=== PATIENT | male | born 1970 | race Two or more races ===

== ENCOUNTER → 2025-01-22 | Outpatient (CLI) | payer MEDICARE, MEDICAID, SELFPAY ==
[2025-01-22 16:27] LABS: Basophils # (Auto) 0.1 Thou/mm3 (0.0-0.2); Basophils % (Auto) 1 % (0-2.5); Eosinophils # (Auto) 0.6 Thou/mm3 (0.0-0.5); Eosinophils % (Auto) 9 % (0-10); Hematocrit 43.8 % (41.0-53.0); Hemoglobin 15.6 g/dL (13.5-16.0); Immature Granulocytes % (Auto) 0 % (0-0); Immature Granulocytes Auto 0.01 Thou/mm3 (0.00-0.00); Lymphocytes # (Auto) 2.3 Thou/mm3 (1.0-4.8); Lymphocytes % (Auto) 33 % (10-50); Mean Corpuscular HGB Conc 35.6 g/dl (31.0-37.0); Mean Corpuscular Hemoglobin 31.8 pg (25.0-35.0); Mean Corpuscular Volume 89 fL (80-100); Monocytes # (Auto) 0.6 Thou/mm3 (0.0-0.8); Monocytes % (Auto) 8 % (0-12); Neutrophils # (Auto) 3.3 Thou/mm3 (1.8-7.7); Neutrophils % (Auto) 48 % (37-80); Nucleated Red Blood Cell % 0 /100 WBC (0); Platelet Count 194 Thou/mm3 (140-440); RDW Standard Deviation 39.7 fL (35.1-43.9); Red Blood Count 4.91 Miln/mm3 (4.50-5.90); White Blood Count 6.8 Thou/mm3 (3.8-10.6)
[2025-01-22 16:47] LABS: Alanine Aminotransferase 24 U/L (10-49); Albumin, Serum 4.1 gm/dL (3.5-5.0); Albumin/Globulin Ratio 1.4 (1.2-2.2); Alkaline Phosphatase 70 U/L (46-116); Anion Gap 7 (7-16); Aspartate Amino Transferase < 8 U/L (0-34); BUN/Creatinine Ratio 16 Ratio (12-20); Bilirubin,Total 0.4 mg/dL (0.3-1.2); Blood Urea Nitrogen 11 mg/dL (9-23); Calcium 9.9 mg/dL (8.3-10.6); Calcium (Corrected) 9.9 mg/dL (8.5-10.1); Chloride 98 mMol/L (98-107); Creatinine (Component) 0.7 mg/dL (0.6-1.3); Globulin 2.9 gm/dL (2.3-3.5); Glucose 97 mg/dL (74-106); Osmolality,Calculated 269 (275-295); Potassium 4.3 mMol/L (3.4-5.1); Sodium 135 mMol/L (136-145); eGFR > 60 See Note
== END | disposition home or self-care (01) ==
PROVIDERS: PCP Family Medicine; Referring Provider Family Medicine; Visit Provider Family Medicine
DX: K21.9 Gastro-esophageal reflux disease without esophagitis (principal); R32 Unspecified urinary incontinence; M81.0 Age-related osteoporosis without current pathological fracture; K59.09 Other constipation; Z71.3 Dietary counseling and surveillance; F73 Profound intellectual disabilities
CPT/HCPCS: 36415; 80053; 85025

== ENCOUNTER → 2025-03-02 | Outpatient (CLI) | payer MEDICARE, MEDICAID, SELFPAY ==
[2025-03-02 10:04] LABS: Collection Type, Urine Clean Catch; Squamous Epithelial Cell,Urine 0 /hpf (0-5)
[2025-03-02 11:56] LABS: Bacteria,Urine Rare; Bilirubin,Urine Negative (Negative); Blood,Urine Negative (Negative); Color,Urine Lt-Yellow (Lt Yel-Yel); Glucose, Urine Negative (Negative); Ketones,Urine Negative (Negative); Leukocyte Esterase,Urine Positive (Negative); Nitrite,Urine Positive (Negative); Protein,Urine Negative (Neg - Trace); RBC,Urine 2 /hpf (0-3); Specific Gravity,Urine 1.006 (1.001-1.035); Urobilinogen,Urine Negative mg/dL (0.0-1.0); WBC,Urine 29 /hpf (0-5)
[2025-03-02 12:25] LABS: Clarity,Urine Hazy (Clear/Hazy)
== END | disposition home or self-care (01) ==
LOC: SLDO 09:57
PROVIDERS: Referring Provider Surgery; Visit Provider Surgery
DX: F84.9 Pervasive developmental disorder, unspecified (principal); N39.0 Urinary tract infection, site not specified
CPT/HCPCS: 81001; 87086

== ENCOUNTER → 2025-04-07 | Outpatient (CLI) | payer MEDICARE, MEDICAID, SELFPAY ==
[2025-04-07 10:19] LABS: Collection Type, Urine Clean Catch; Squamous Epithelial Cell,Urine 0 /hpf (0-5)
[2025-04-07 11:09] LABS: Bacteria,Urine 1+; Bilirubin,Urine Negative (Negative); Blood,Urine 1+ (Negative); Clarity,Urine Clear (Clear/Hazy); Color,Urine Lt-Yellow (Lt Yel-Yel); Glucose, Urine Negative (Negative); Ketones,Urine Negative (Negative); Leukocyte Esterase,Urine Positive (Negative); Nitrite,Urine Negative (Negative); Protein,Urine Negative (Neg - Trace); RBC,Urine 46 /hpf (0-3); Specific Gravity,Urine 1.009 (1.001-1.035); Urobilinogen,Urine Negative mg/dL (0.0-1.0); WBC,Urine 8 /hpf (0-5)
== END | disposition home or self-care (01) ==
LOC: SLDO 10:11
PROVIDERS: Referring Provider Surgery; Visit Provider Surgery
DX: N41.9 Inflammatory disease of prostate, unspecified (principal)
CPT/HCPCS: 81001; 87077; 87086; 87186

== ENCOUNTER 2025-04-08 01:43 | Emergency (ER) | payer MEDICARE, MEDICAID, SELFPAY ==
[2025-04-08 01:59] VITALS: BP 139/85; PULSE 109; RESP 18; TEMP 37.7; O2SAT 95
[2025-04-08 02:20] VITALS: BP 125/83; PULSE 102; RESP 20; TEMP 37.7; O2SAT 94
--- NOTE | 2025-04-08 03:12 | XR_ITS ---
Examination: Abdomen AP single view Technique: AP portable supine abdomen, single view Exam date and time: April 08, 2025 0317 hours INDICATIONS: Unknown position gastrostomy tube FINDINGS: Opacification of the stomach duodenal bulb duodenal sweep and small bowel IMPRESSION: Gastrostomy tube in the body of the stomach satisfactory position Abundant stool throughout the colon
--- NOTE | 2025-04-08 03:13 | PD.EDADULT ---
ED General RME/HPI General Chief complaint: General Adult/Misc Complain Stated complaint: PULLED OUT G TUBE Time Seen by Provider: 04/08/25 02:31 Arrival date/time: 04/08/25 01:43 RME / HPI RME / HPI narrative: Dr. Stallworth?s Main ED Evaluation: 54 y/o non-verbal male with Hx of G-tube and Cerebral Palsy presents to ED from [facility] c/o G-tube dislodgment. No abdominal pain reported. Staff found the patient and noticed his G-tube was pulled out. No other concerns or complaints expressed at this time. Related Data Home Medications ?Medication ?Instructions ?Recorded ?Confirmed baclofen 10 mg tablet 10 mg feeding tube TID 06/16/23 06/16/23 glycopyrrolate 2 mg tablet 2 mg feeding tube TID 06/16/23 06/16/23 omeprazole 20 mg capsule,delayed 20 mg feeding tube DAILY 06/16/23 06/16/23 release Allergies Allergy/AdvReac Type Severity Reaction Status Date / Time acetylcysteine (From Allergy Verified 06/16/23 18:34 Mucomyst) vancomycin Allergy Verified 06/16/23 18:34 Review of Systems Review of Systems ROS Unobtainable: unobtainable due to medical condition (Cerebral Palsy/Non-verbal) Past Medical History Past Medical History NEUROLOGIC: Positive Seizures and Cerebral Palsy GASTROINTESTINAL: Positive Gastroesophageal Reflux Disease MUSCULOSKELETAL: Positive Osteoporosis OTHER HISTORY: Positive Hospitalization and Developmental Delay Surgical History SURGICAL: Positive Gastrostomy ED Exam Narrative Physical exam: GENERAL APPEARANCE: awake, confused, nonverbal, localizes to pain, unable to contribute to history, well-developed, well-nourished, no acute distress VITALS: All vitals were reviewed and the pulse ox is 95% on room air, which is normal according to my interpretation. HEENT: Normocephalic, atraumatic; pupils equal, round, reactive to light; EOMI; mucous membranes pink, moist; oropharynx clear NECK: Supple LUNGS: CTABL; no wheezes, no rales, no rhonchi HEART: Regular rate, regular rhythm; normal S1, S2; no murmurs ABDOMEN: non distended; normal BS; soft, no tenderness, no guarding, no rebound; no masses, no organomegaly, no hernia, G-tube stoma to LUQ with minimal bright red oozing blood to the area BACK: no CVA tenderness EXTREMITIES: atraumatic; no edema NEUROLOGIC: awake; nonverbal at baseline; GCS 13 SKIN: warm, dry, normal color; no rashes Course Quality Measures none Orders Category Date Time Status XR abdomen 1V Stat Exams 04/08/25 03:12 Completed Vital Signs Vital signs: Vital Signs Temperature 99.8 F 04/08/25 01:59 Pulse Rate 109 H 04/08/25 01:59 Respiratory Rate 18 04/08/25 01:59 Blood Pressure 139/85 H 04/08/25 01:59 Pulse Oximetry (%) 95 04/08/25 01:59 Oxygen Delivery Method Room Air 04/08/25 01:59 Procedures -ED Procedure Comment Performed by: Dr. Ganga Stallworth Consent: Implied consent obtained. Risks and benefits: risks, benefits and alternatives were discussed Consent given by: SNF/guardian Patient understanding: SNF/guardian states understanding of the procedure being performed Patient consent: SNF/guardian's understanding of the procedure matches consent given Patient identity confirmed: arm band Time out: Immediately prior to procedure a time out was called to verify the correct patient, procedure, equipment, windows server support technician and site/side marked as required. Location details: abdomen Procedure: using gentle pressure, new 24 Ivorian g-tube was placed with normal saline injected afterward to fill balloon port Results: KUB with contrast confirms proper placement Complication: Tolerated well, went in easily without complication. No tenderness with balloon inflation. Feeding Tube Replacement Type of Tube: gastrostomy Insertion Site Prior to Procedure: clean Tube Used for Reinsertion: Hilario Ivorian Tube Size (F): 24 Balloon size (mL): 10 Verification of Placement: gastrografin injection Tube Secured by: tape/dressing Patient Tolerated Procedure: well and no complications Discharge Plan Plan Patient Disposition: Xfer Skilled Nsg Fac ([facility]) Discharge Disposition comment: Stable for discharge to the SNF Patient condition on transfer: Stable Prescriptions/Referrals Prescriptions/Med Rec: No Action baclofen 10 mg tablet 10 mg feeding tube TID omeprazole 20 mg capsule,delayed release(DR/EC) 20 mg feeding tube DAILY glycopyrrolate 2 mg Tablet 2 mg feeding tube TID Referrals: Homero Alexander [Primary Care Provider] - In 1 week Problem List Clinical Impression: Dislodged gastrostomy tube Patient/Caregiver Discharge Instructions Discharge Activity: activity as tolerated Diet Instructions: As per usual Education Materials: ED Tube Replacement Feeding W Hilario Additional Instructions: If Lex has any worsening or any further medical problems please send him back to the emergency department. Otherwise you should follow-up with your primary care doctor within the next several days Lex is going to need a G-tube placed within the next several days. We have placed a temporary Hilario catheter in order to ensure that the stoma does not close. However this is a temporary fix and he will need a definitive G-tube Print Language: Luxembourgish Stand Alone Forms: Jenni Award Info., Patient Portal Info Letter MDM Narrative Procedures done or offered: G-tube replacement Clinical Information Provided by EMS Medical [facility] and [facility]ial Meds/Rx Considered, not Ordered None Labs/Rad/Tests considered, not Ordered None Chronic Illness/Social Conditions which may negatively complicate care or outcome(s)-explain: Developmentally delayed and custodial/debilitated EKG EKG not done Lab Interpretation Labs: none Imaging Imaging interpretation: interpreted by me Provider imaging interpretation(s): Abdomen X-Ray shows G-tube placement in good position, opacification of the stomach and small bowel, no free air, according to my interpretation. Medication Administration(s) none Diagnosis Differential diagnosis: Abdominal pain, abscess, cellulitis, GERD Most likely dx, and/or detailed dx discussion: Refer to clinical impression below Dispositon Disposition: Nursing/Care
[2025-04-08 05:24] VITALS: RESP 18
== END 2025-04-08 05:24 | disposition skilled nursing facility (03) ==
LOC: SERX 03:53
PROVIDERS: Emergency Provider Emergency Medicine; PCP Family Medicine
DX: Z43.1 Encounter for attention to gastrostomy (principal)
CPT/HCPCS: 43762; 74018; 99283; Q9963

== ENCOUNTER → 2025-05-04 | Outpatient (CLI) | payer MEDICARE, MEDICAID, SELFPAY ==
--- NOTE | 2025-05-04 13:00 | XR_ITS ---
Examination: CT abdomen and pelvis without contrast. Coronal 3-D reconstructions. Sagittal 2-D reconstructions. 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 Low dose protocols were performed. One or more of the following dose reduction techniques were used; automated exposure control, adjustment of the mA and/or KV according to patient size, use of iterative reconstruction technique. 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
== END | disposition home or self-care (01) ==
PROVIDERS: Referring Provider Surgery; Visit Provider Surgery
DX: K80.20 Calculus of gallbladder without cholecystitis without obstruction (principal); N32.89 Other specified disorders of bladder; K62.89 Other specified diseases of anus and rectum
CPT/HCPCS: 74176

== ENCOUNTER → 2025-06-05 | Outpatient (CLI) | payer MEDICARE, MEDICAID, SELFPAY ==
[2025-06-05 11:53] LABS: Collection Type, Urine Clean Catch; Squamous Epithelial Cell,Urine 0 /hpf (0-5)
[2025-06-05 12:46] LABS: Amorphous Crystals,Urine Present (Absent); Bacteria,Urine Rare; Bilirubin,Urine Negative (Negative); Blood,Urine Trace (Negative); Color,Urine Yellow (Lt Yel-Yel); Glucose, Urine Negative (Negative); Ketones,Urine Negative (Negative); Leukocyte Esterase,Urine Negative (Negative); Nitrite,Urine Negative (Negative); PH,Urine 8.0 (5.0-7.0); Protein,Urine Trace (Neg - Trace); RBC,Urine 18 /hpf (0-3); Specific Gravity,Urine 1.011 (1.001-1.035); Urobilinogen,Urine Negative mg/dL (0.0-1.0); WBC,Urine 7 /hpf (0-5)
[2025-06-05 12:52] LABS: Clarity,Urine Hazy (Clear/Hazy)
== END | disposition home or self-care (01) ==
LOC: SLDO 11:39
PROVIDERS: Referring Provider Surgery; Visit Provider Surgery
DX: A41.9 Sepsis, unspecified organism (principal)
CPT/HCPCS: 81001; 87086

== ENCOUNTER → 2025-07-22 | Outpatient (CLI) | payer MEDICARE, MEDICAID, SELFPAY ==
[2025-07-22 10:10] LABS: Quantiferon-TB* See Sep Rpt
[2025-07-22 10:50] LABS: Basophils # (Auto) 0.1 Thou/mm3 (0.0-0.2); Basophils % (Auto) 1 % (0-2.5); Eosinophils # (Auto) 0.7 Thou/mm3 (0.0-0.5); Eosinophils % (Auto) 10 % (0-10); Hematocrit 45.5 % (41.0-53.0); Hemoglobin 15.7 g/dL (13.5-16.0); Immature Granulocytes Auto 0.01 Thou/mm3 (0.00-0.00); Lymphocytes # (Auto) 2.0 Thou/mm3 (1.0-4.8); Lymphocytes % (Auto) 28 % (10-50); Mean Corpuscular HGB Conc 34.5 g/dl (31.0-37.0); Mean Corpuscular Hemoglobin 32.0 pg (25.0-35.0); Mean Corpuscular Volume 93 fL (80-100); Monocytes # (Auto) 0.5 Thou/mm3 (0.0-0.8); Monocytes % (Auto) 8 % (0-12); Neutrophils # (Auto) 3.6 Thou/mm3 (1.8-7.7); Neutrophils % (Auto) 53 % (37-80); Nucleated Red Blood Cell # 0.00 Thou/mm3 (0.00-0.00); Nucleated Red Blood Cell % 0 /100 WBC (0); Platelet Count 188 Thou/mm3 (140-440); RDW Standard Deviation 43.3 fL (35.1-43.9); Red Blood Count 4.91 Miln/mm3 (4.50-5.90); White Blood Count 6.9 Thou/mm3 (3.8-10.6)
[2025-07-22 10:57] LABS: Glucose Estimated Average 94 mg/dL (80-131); Hemoglobin A1C 4.9 % Hgb (4.8-6.0)
[2025-07-22 11:03] LABS: Alanine Aminotransferase 28 U/L (10-49); Albumin, Serum 4.4 gm/dL (3.5-5.0); Albumin/Globulin Ratio 1.5 (1.2-2.2); Alkaline Phosphatase 72 U/L (46-116); Anion Gap 7 (7-16); Aspartate Amino Transferase 22 U/L (0-34); BUN/Creatinine Ratio 10 Ratio (12-20); Bilirubin,Total 0.4 mg/dL (0.3-1.2); Blood Urea Nitrogen 7 mg/dL (9-23); Calcium 10.2 mg/dL (8.3-10.6); Calcium (Corrected) 10.2 mg/dL (8.5-10.1); Carbon Dioxide 31.1 mMol/L (20.0-31.0); Cardiac Risk Estimate 4.1 RATIO (4.0-6.7); Chloride 99 mMol/L (98-107); Cholesterol 183 mg/dL (132-200); Creatinine (Component) 0.7 mg/dL (0.6-1.3); Globulin 2.9 gm/dL (2.3-3.5); Glucose 100 mg/dL (74-106); HDL Cholesterol 45 mg/dL (40-60); LDL Cholesterol,Calculated 109 mg/dL (0-130); Osmolality,Calculated 271 (275-295); Potassium 4.7 mMol/L (3.4-5.1); Sodium 137 mMol/L (136-145); Thyroid Stimulating Hormone 2.05 uIU/mL (0.55-4.78); Total Protein 7.3 gm/dL (5.7-8.2); Triglycerides 147 mg/dL (30-150); eGFR > 60 See Note
== END | disposition home or self-care (01) ==
LOC: COPL 09:32
PROVIDERS: PCP Family Medicine; Referring Provider Family Medicine; Visit Provider Family Medicine
DX: F73 Profound intellectual disabilities (principal); K59.09 Other constipation; G80.1 Spastic diplegic cerebral palsy; K21.9 Gastro-esophageal reflux disease without esophagitis; M81.0 Age-related osteoporosis without current pathological fracture; G40.309 Generalized idiopathic epilepsy and epileptic syndromes, not intractable, without status epilepticus; R74.8 Abnormal levels of other serum enzymes; R32 Unspecified urinary incontinence; L21.9 Seborrheic dermatitis, unspecified
CPT/HCPCS: 36415; 80053; 80061; 81001; 83036; 84443; 85025; 86480

== ENCOUNTER → 2025-07-31 | Outpatient (CLI) | payer MEDICARE, MEDICAID, SELFPAY ==
[2025-07-31 10:26] LABS: Collection Type, Urine Clean Catch
[2025-07-31 11:24] LABS: Bacteria,Urine 3+; Bilirubin,Urine Negative (Negative); Blood,Urine 2+ (Negative); Clarity,Urine Turbid (Clear/Hazy); Color,Urine Lt-Yellow (Lt Yel-Yel); Glucose, Urine Negative (Negative); Ketones,Urine Negative (Negative); Leukocyte Esterase,Urine Positive (Negative); Nitrite,Urine Negative (Negative); PH,Urine 8.0 (5.0-7.0); Protein,Urine Trace (Neg - Trace); RBC,Urine 6 /hpf (0-3); Specific Gravity,Urine 1.006 (1.001-1.035); Squamous Epithelial Cell,Urine < 1 /hpf (0-5); Urobilinogen,Urine Negative mg/dL (0.0-1.0); WBC,Urine 42 /hpf (0-5)
== END | disposition home or self-care (01) ==
LOC: SLDO 10:18
PROVIDERS: PCP Family Medicine; Referring Provider Family Medicine; Visit Provider Family Medicine
DX: F73 Profound intellectual disabilities (principal); K59.09 Other constipation; G80.1 Spastic diplegic cerebral palsy; K21.9 Gastro-esophageal reflux disease without esophagitis; M81.0 Age-related osteoporosis without current pathological fracture; G40.309 Generalized idiopathic epilepsy and epileptic syndromes, not intractable, without status epilepticus; R74.8 Abnormal levels of other serum enzymes; R32 Unspecified urinary incontinence; L21.9 Seborrheic dermatitis, unspecified
CPT/HCPCS: 81001